=== PATIENT | female | born 1970 | race Caucasian/White ===

== ENCOUNTER 2020-04-02 20:35 | Emergency (ER) | payer MEDICAID ==
[~2020-04-02] VITALS: Ht 162.6 cm; Wt 67.6 kg
[2020-04-02 21:19] VITALS: BP_SYST 147
[2020-04-02] MEDS ORDERED: LIDOCAINE 1% 10 MG/ML, 20 ML MDV INJ ONE (23:15)
[2020-04-03] MEDS ORDERED: IBUPROFEN 600 MG TABLET ONE (00:31)
[2020-04-03] MEDS ORDERED: IBUPROFEN 600 MG TABLET PO ONE (00:45)
[2020-04-03 00:50] VITALS: BP_SYST 147
== END 2020-04-03 00:50 | disposition home or self-care (01) ==
LOC: SED 20:35
DX: N75.1 Abscess of Bartholin's gland (principal)
CPT/HCPCS: 56405; 99284; J2001

== ENCOUNTER 2020-04-04 19:15 | Emergency (ER) | payer MEDICAID ==
[~2020-04-04] VITALS: Ht 162.6 cm; Wt 67.6 kg
[2020-04-04 19:15] VITALS: BP_SYST 136
--- NOTE | 2020-04-04 19:15 | NUR ---
Patient triaged and placed in waiting room. VSS and patient appears in no acute distress at this time. Awaiting available bed, and MD notified of need for MSE.
--- NOTE | 2020-04-04 20:05 | NUR ---
Patient to ER bed 05 to gown for evaluation. Side rails up. Report given to CARLOS MANUEL Mabry.
--- NOTE | 2020-04-04 20:10 | NUR ---
ER at bedside examining patient.
--- NOTE | 2020-04-04 20:15 | NUR ---
Pt presents to the ER for wound check done on 04/02. Pt had vaginal abscess and packing done on patient. Pt c/o of pain and swelling. Denies fever, SOB, and d/c.
--- NOTE | 2020-04-04 20:20 | NUR ---
and Clotilde RN at bedside peforming vaginal wound check. Pt tolerated procedure well.
--- NOTE | 2020-04-04 20:45 | NUR ---
Patient given written and verbal discharge instructions and verbalizes understanding. ER MD discussed with patient the results and treatment provided. Patient in stable condition. ID arm band removed. Opportunity for questions provided and answered.
[2020-04-04 20:48] VITALS: BP_SYST 136
== END 2020-04-04 20:45 | disposition home or self-care (01) ==
LOC: SED 19:15
DX: Z48.02 Encounter for removal of sutures (principal); I10 Essential (primary) hypertension; E03.9 Hypothyroidism, unspecified; E78.00 Pure hypercholesterolemia, unspecified
CPT/HCPCS: 99281; J7030

== ENCOUNTER 2020-04-06 18:40 | Emergency (ER) | payer MEDICAID ==
[~2020-04-06] VITALS: Ht 162.6 cm; Wt 66.7 kg
[2020-04-06 18:49] VITALS: BP_SYST 130
--- NOTE | 2020-04-06 18:52 | NUR ---
Patient to ER bed 07 to gown for evaluation. Side rails up.
--- NOTE | 2020-04-06 18:53 | NUR ---
Pt brought by self, A&Ox4, pt presents to ER with for follow up of vaginal abscess , packing noted, small amount of bloody discharge noted , skin pink and warm, cap refill <3, afebrile, pt taking antibiotics
--- NOTE | 2020-04-06 19:00 | NUR ---
Dr De Souza evaluating patient at bedside with myself at bedside
--- NOTE | 2020-04-06 19:10 | NUR ---
Per Dr De Souza pt will return in 4 days for woundcheck
[2020-04-06 19:18] VITALS: BP_SYST 130
--- NOTE | 2020-04-06 19:19 | NUR ---
Patient given written and verbal discharge instructions and verbalizes understanding. ER MD discussed with patient the results and treatment provided. Patient in stable condition. ID arm band removed. No Rx given. Patient educated on pain management and to follow up with PMD. Pain Scale 3/10 tolerable for pt. Opportunity for questions provided and answered. Medication side effect fact sheet provided.
== END 2020-04-06 19:19 | disposition home or self-care (01) ==
LOC: SED 18:40
DX: Z48.00 Encounter for change or removal of nonsurgical wound dressing (principal); I10 Essential (primary) hypertension; E03.9 Hypothyroidism, unspecified; E78.00 Pure hypercholesterolemia, unspecified
CPT/HCPCS: 99281

== ENCOUNTER 2020-04-09 15:17 | Emergency (ER) | payer MEDICAID ==
[~2020-04-09] VITALS: Ht 160 cm; Wt 67.6 kg
[2020-04-09 15:25] VITALS: BP_SYST 128
--- NOTE | 2020-04-09 15:30 | NUR ---
Patient triaged and placed in waiting room. VSS and patient appears in no acute distress at this time. Awaiting available bed, and MD notified of need for MSE.
--- NOTE | 2020-04-09 15:41 | NUR ---
Patient to ER bed 5 to gown for evaluation. Side rails up. Report given to CARLOS MANUEL Dyson.
--- NOTE | 2020-04-09 15:45 | NUR ---
Pt walked in to ER for f/u check up on vaginal abcess. Denies any pain at this time. V/S stable, pt is afebrile. Currently resting in bed, will continue to monitor.
--- NOTE | 2020-04-09 16:10 | NUR ---
ER Dr. Santiago at bedside examining patient.
--- NOTE | 2020-04-09 16:25 | NUR ---
Patient given written and verbal discharge instructions and verbalizes understanding. ER MD discussed with patient the results and treatment provided. Patient in stable condition. ID arm band removed. Rx of NONE given. Patient educated on pain management and to follow up with PMD. Pain Scale 0/10 Opportunity for questions provided and answered. Medication side effect fact sheet provided.
[2020-04-09 16:26] VITALS: BP_SYST 131
== END 2020-04-09 16:26 | disposition home or self-care (01) ==
LOC: SED 15:17
DX: Z48.00 Encounter for change or removal of nonsurgical wound dressing (principal); E03.9 Hypothyroidism, unspecified; I10 Essential (primary) hypertension; E78.00 Pure hypercholesterolemia, unspecified
CPT/HCPCS: 99281